=== PATIENT | male | born 1975 | race Caucasian/White ===

== ENCOUNTER 2017-04-02 12:15 | Outpatient (CLI) | payer BC ==
[2017-04-02 13:48] LABS: ALBUMIN/GLOBULIN RATIO 1.4 (1.0-2.2); CALCIUM 8.9 mg/dL (8.5-10.3); POTASSIUM 3.7 mmol/L (3.5-5.0); TOTAL PROTEIN 6.9 g/dL (6.7-8.2)
[2017-04-02 13:58] LABS: HEMOGLOBIN A1C 0.58 g/dL
[2017-04-04 14:06] LABS: TEST RESULT REPORT (())
[2017-04-04 16:07] LABS: TEST RESULT REPORT (())
[2017-04-08 15:46] LABS: TEST RESULT REPORT (())
== END 2017-04-02 12:16 | disposition home or self-care (01) ==
LOC: LAB.WCP 12:15
PROVIDERS: ATTEND Family Medicine
DX: E16.2 Hypoglycemia, unspecified (principal)
CPT/HCPCS: 36415; 80053; 81599; 83036

== ENCOUNTER 2017-05-08 12:52 | Emergency (ER) | payer BC ==
[2017-05-08 13:09] VITALS: BP 139/93
[2017-05-08] MEDS ORDERED: HYDROcod/ACETAM 5/325 MG TABLET PO STA (13:22)
--- NOTE | 2017-05-08 13:24 | ED Physician Documentation ---
PD HPI NECK PAIN - Stated complaint Stated Complaint: NECK PX - Chief complaint Chief Complaint: Back Pain - History obtained from History obtained from: Patient, Family () - History of Present Illness Timing - onset: Other (For a long time he has had recurrent left-sided neck pain with a deep ache Over the top of left shoulder. For the last week he has had it, and worse than it has ever been. There is no specific injury. He had x -rays ordered by his physician 2 days ago showing multilevel degenerative changes with neuroforaminal narrowing especially at C4-5 and C5-6. He tried a muscle relaxer and gabapentin at night without relief.) Review of Systems Constitutional: denies: Fever, Chills Nose: denies: Rhinorrhea / runny nose, Congestion Cardiac: denies: Chest pain / pressure, Palpitations Respiratory: denies: Dyspnea, Cough GI: denies: Abdominal Pain, Nausea, Vomiting PD PAST MEDICAL HISTORY - Present Medications Home Medications: Ambulatory Orders Medication Instructions Recorded Confirmed Dextroamphetamine/Amphetamine 20 mg PO BID 05/08/17 05/08/17 [Adderall 20 mg Tablet] Gabapentin 300 mg PO TID #60 capsule 05/08/17 HYDROcod/ACETAM 5/325 [Hackberry 5/325] 1 - 2 ea PO Q6H PRN #20 tablet 05/08/17 Ibuprofen [Motrin] 800 mg PO Q8H PRN #30 tablet 05/08/17 predniSONE [Deltasone] 20 mg PO [id number] #21 tab 05/08/17 - Allergies Allergies/Adverse Reactions: Allergies Allergy/AdvReac Type Severity Reaction Status Date / Time No Known Drug Allergies Allergy Verified 05/08/17 13:08 PD ED PE NORMAL - Vitals Vital signs reviewed: Yes - General General: Alert and oriented X 3, No acute distress - Neck Neck: Supple, no meningeal sign, No bony TTP - Neuro Neuro: Alert and oriented X 3, 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, Normal speech, Other (He seems to have equal upper extremity reflexes, 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 He has had incomplete relief with gabapentin just at night and a muscle relaxer. He was advised to stop the muscle relaxer and we will increase his gabapentin to 3 times a day and add an anti-inflammatory, steroid, and as needed Vicodin. He is advised to follow-up with his physician for further evaluation and treatment. Departure - Departure Disposition: Home, Self Care Clinical Impression: Cervical radiculopathy at C5 Condition: Good Record reviewed to determine appropriate education?: Yes Instructions: ED Cervical Radiculopathy Prescriptions: predniSONE [Deltasone] 20 mg PO [id number] #21 tab Gabapentin 300 mg PO TID #60 capsule Ibuprofen [Motrin] 800 mg PO Q8H PRN #30 tablet PRN Reason: PAIN &/OR FEVER HYDROcod/ACETAM 5/325 [Hackberry 5/325] 1 - 2 ea PO Q6H PRN #20 tablet PRN Reason: Pain Comments: Follow-up with your primary care physician, discuss an MRI if symptoms are persistent. Continue with physical therapy for now. Do not drink or drive with the hydrocodone or gabapentin. Your blood pressure was elevated today on check into the emergency department. This does not mean that you have hypertension, it is a common phenomenon to come to the emergency department and have elevated blood pressure. I recommend that she see her primary care physician within the week to have it rechecked when you are feeling better.
[2017-05-08] MEDS ORDERED: HYDROcod/ACETAM 5/325 MG TABLET ONE (13:30)
== END 2017-05-08 13:30 | disposition home or self-care (01) ==
LOC: ED 12:52
DX: M54.12 Radiculopathy, cervical region (principal); R03.0 Elevated blood-pressure reading, without diagnosis of hypertension
CPT/HCPCS: 99283; A9270

== ENCOUNTER → 2019-11-11 | Outpatient (CLI) | payer BC ==
[2019-11-11 12:55] LABS: ALBUMIN/GLOBULIN RATIO 1.3 (1.0-2.2); ALKALINE PHOSPHATASE 106 IU/L (42-121); ALT ALANINE AMINOTRANSFERASE 43 IU/L (10-60); AST ASPARTATE AMINOTRANSFERASE 30 IU/L (10-42); BILIRUBIN,TOTAL 0.9 mg/dL (0.2-1.0); BUN - BLOOD UREA NITROGEN 18 mg/dL (6-20); CALCIUM 8.8 mg/dL (8.5-10.3); CARBON DIOXIDE - CO2 26 mmol/L (21-32); CHLORIDE 107 mmol/L (101-111); CHOL/HDL RATIO 5.7 (<5.0); CHOLESTEROL 181 mg/dL; CREATININE 1.2 mg/dL (0.6-1.2); GFR - MDRD 66 (>89); GLUCOSE 103 mg/dL (70-100); HDL CHOLESTEROL 32 mg/dL; LDL CHOLESTEROL,CALCULATED 120 mg/dL; LDL/HDL RATIO 3.8 (<3.6); SODIUM 139 mmol/L (135-145); TOTAL PROTEIN 7.1 g/dL (6.7-8.2); VLDL CHOLESTEROL 29 mg/dL
== END ==
LOC: LAB.WCP 08:40
PROVIDERS: ATTEND Family Medicine
DX: Z00.00 Encounter for general adult medical examination without abnormal findings (principal); Z12.5 Encounter for screening for malignant neoplasm of prostate
CPT/HCPCS: 36415; 80053; 80061; 83721; 84153

== ENCOUNTER 2020-03-07 15:52 | Outpatient (CLI) | payer BC ==
[2020-03-07 18:36] LABS: BASOPHILS # (AUTO) 0.1 10^3/uL (0.0-0.1); BASOPHILS % (AUTO) 0.5 %; EOSINOPHILS # (AUTO) 0.1 10^3/uL (0.0-0.7); EOSINOPHILS % (AUTO) 1.4 %; HGB - HEMOGLOBIN 16.5 g/dL (14.0-18.0); LYMPHOCYTES # (AUTO) 1.7 10^3/uL (1.5-3.5); LYMPHOCYTES % (AUTO) 17.4 %; MEAN CORPUSCULAR HEMOGLOBIN 31.5 pg (27.0-31.0); MEAN CORPUSCULAR HGB CONC 34.2 g/dL (32.0-36.0); MEAN CORPUSCULAR VOLUME 92.2 fL (80.0-94.0); MEAN PLATELET VOLUME 10.8 fL (7.4-11.4); MONOCYTES # (AUTO) 0.7 10^3/uL (0.0-1.0); MONOCYTES % (AUTO) 7.5 %; NEUTROPHILS % (AUTO) 72.7 %; PLT - PLATELET COUNT 275 10^3/uL (130-450); RED BLOOD COUNT 5.24 10^6/uL (4.70-6.10); RED CELL DISTRIBUTION WIDTH 12.1 % (12.0-15.0); WHITE BLOOD COUNT 9.6 x10^3/uL (4.8-10.8)
[2020-03-07 18:54] LABS: ALBUMIN 4.2 g/dL (3.2-5.5); ALBUMIN/GLOBULIN RATIO 1.4 (1.0-2.2); BILIRUBIN,TOTAL 0.9 mg/dL (0.2-1.0); CALCIUM 9.2 mg/dL (8.5-10.3); CREATININE 1.3 mg/dL (0.6-1.2); TOTAL PROTEIN 7.3 g/dL (6.7-8.2)
== END 2020-03-07 23:59 | disposition home or self-care (01) ==
LOC: LAB.WCP 15:52
PROVIDERS: ATTEND Nurse Practitioner Family
DX: R94.31 Abnormal electrocardiogram [ECG] [EKG] (principal)
CPT/HCPCS: 36415; 80053; 84443; 85025

== ENCOUNTER 2020-03-08 07:53 | Outpatient (CLI) | payer BC ==
[2020-03-08 12:45] LABS: CHOL/HDL RATIO 6.1 (<5.0); CHOLESTEROL 164 mg/dL; HDL CHOLESTEROL 27 mg/dL; LDL CHOLESTEROL,CALCULATED 106 mg/dL; LDL/HDL RATIO 3.9 (<3.6); VLDL CHOLESTEROL 31 mg/dL
== END 2020-03-08 23:59 | disposition home or self-care (01) ==
LOC: LAB.WCP 07:53
PROVIDERS: ATTEND Family Medicine
DX: Z00.00 Encounter for general adult medical examination without abnormal findings (principal)
CPT/HCPCS: 36415; 80061; 83721

== ENCOUNTER 2021-06-12 09:25 | Outpatient (CLI) | payer BC ==
[2021-06-12 12:50] LABS: ALBUMIN 3.8 g/dL (3.2-5.5); ALBUMIN/GLOBULIN RATIO 1.4 (1.0-2.2); ALKALINE PHOSPHATASE 127 IU/L (42-121); ALT ALANINE AMINOTRANSFERASE 33 IU/L (10-60); AST ASPARTATE AMINOTRANSFERASE 22 IU/L (10-42); BILIRUBIN,TOTAL 0.7 mg/dL (0.2-1.0); BUN - BLOOD UREA NITROGEN 16 mg/dL (6-20); CARBON DIOXIDE - CO2 26 mmol/L (21-32); CHLORIDE 103 mmol/L (101-111); CHOL/HDL RATIO 6.7 (<5.0); CHOLESTEROL 167 mg/dL; CREATININE 1.2 mg/dL (0.6-1.2); GFR - MDRD 66 (>89); GLUCOSE 100 mg/dL (70-100); HDL CHOLESTEROL 25 mg/dL; LDL CHOLESTEROL,CALCULATED 89 mg/dL; LDL/HDL RATIO 3.6 (<3.6); POTASSIUM 4.3 mmol/L (3.5-5.0); SODIUM 139 mmol/L (135-145); TOTAL PROTEIN 6.6 g/dL (6.7-8.2); TRIGLYCERIDES 266 mg/dL; VLDL CHOLESTEROL 53 mg/dL
== END 2021-06-12 23:59 | disposition home or self-care (01) ==
LOC: LAB.WCP 09:25
PROVIDERS: ATTEND Family Medicine
DX: Z00.00 Encounter for general adult medical examination without abnormal findings (principal); Z12.5 Encounter for screening for malignant neoplasm of prostate
CPT/HCPCS: 36415; 80053; 80061; 83721; 84153

== ENCOUNTER 2021-07-17 12:38 | Outpatient (CLI) | payer BC ==
[2021-07-17 13:47] VITALS: BP 139/90
--- NOTE | 2021-07-17 13:47 | SLEEP CARE CONSULTATION ---
Information from patient questionnaire entered by Mayuri Durham. I have reviewed and concur with the information entered by Mayuri Durham. This document represents the service I personally performed and the decisions made by me, Mariana Carvalho ARNP. History of Present Illness Service Date and Time: 07/17/2021 1238 Reason for Visit: New patient, Previously diagnosed sleep apnea (AHI 101.1), sleep apnea on CPAP therapy Chief Complaint: reports: Unrefreshed sleep, Snoring (not when using his CPAP), Excessive daytime sleepiness, Observed pauses in breathing (not when using CPAP), Fatigue Date of Onset: 20+ years Usual bedtime: 2200 Time it takes to fall asleep: 60 minutes Snores at night: Yes Observed to quit breathing while asleep: Yes Sleeps alone due to snoring: No Number of times waking at night: 3 Reasons for waking at night: reports: Snoring, Bathroom Toss, Turn, or Twitch while sleeping: No Recalls having dreams: No Feels refreshed in the morning: No Morning headache: No Sleepy or fatigued during the day: Yes Ever fallen asleep while driving: No Takes day naps: Yes Dreams during day naps: No Prior sleep studies: Yes Year and Where: 2019 [facility] Type of Sleep Study: Polysomnography Additional HPI information: JULIO TAMAYO was previously diagnosed to have extremely severe, AHI 101.1, obstructive sleep apnea-hypopnea syndrome and comes in today to establish care for CPAP therapy. He continues to have unrefreshed sleep, daytime sleepiness and fatigue. He comes in with these concerns. - Parasomnia Symptoms Ever been unable to move upon waking from sleep: No Walks in sleep: No Talks in sleep: No Ever acted out dreams in sleep: No Ever felt weak in the knees when startled or emotional: No Bothered by creepy, crawly, restless sensations in legs: No Problems with memory or concentration: Yes CPAP Compliance Data - Data Reviewed with Patient Average duration of nightly device use: 6 hours, 32 minutes Compliance rate %: 83 Current pressure setting (cmH2O): 11-14 Average residual AHI: 4.3 Central apnea: 0.4 Obstructive apnea: 2.5 Average large leak: 35.7 L/min Compliance data discussion: He has a ResMed AirSense 10 machine. He is using an AirTouch F20. He last changed his cushion over the weekend. He does not have a backup mask. He gets his supplies with a DME but he does not know the name. They call him for him to order supplies. Subjective Patient concerns: reports: air blowing in eyes (sometimes, until readjust mask), mask leak noise (sometimes, until readjust mask). denies: aerophagia, mask discomfort, condensation in mask/hose, nasal congestion, dry mouth, nose, throat, epistaxis, other Observed to snore while using device: No Current pressure setting perceived as: comfortable On therapy, patient: reports: other (Has not noticed a difference in feeling res sanjeev or sleeping better since starting machine.). denies: drowsiness while driving Initial [place] Sleepiness Scale score: 7 (in 2020) Past Medical History Past Medical History: reports: Attention deficit Social History The patient's occupation is a [employer]. Patient is and lives in [place]. Have you smoked in the past 12 months: No Cigarettes per day (20/pack): 20 Years of smokin Quit date: 03/28/07 Smoking Pack Years: 12.0 Alcohol use: Yes Alcohol amount and frequency: 1-2, once/week Caffeine use: Yes Caffeine amount and frequency: 1 cup/day Family History Family history of sleep disordered breathing: Yes Family Hx Sleep Apnea: Father: Snoring Allergies and Home Medications Drug allergies reviewed: Yes (NKDA) Home medication list reviewed: Yes (no daily medications or supplements) Review of Systems Weight gain over past 5 years: 50 (40 in last 2 years) Cardiovascular: denies: high blood pressure Gastrointestinal: reports: heartburn Neurological: denies: headaches Psychiatric: denies: anxiety, depression Ear/Nose/Throat: reports: wisdom teeth removed. denies: tonsillectomy Endocrine: reports: sluggishness, increased appetite. denies: thyroid disease Physical Exam Blood Pressure: 139/90 Cuff size: wrist Heart Rate: 91 O2 Saturation: 98 Height: 5 ft 11 in Weight: 276 lb Body Mass Index: 38.5 BMI Classification: Obese Impression and Plan 1. Obstructive Sleep Apnea-Hypopnea Syndrome, extremely severe, with good treatment compliance and good apnea control. On CPAP therapy, the patient has no felt that he is more rested. He continues to wake up not feeling rested and is sleepy during the day. He averages 6 hours 32 minutes on his device nightly. Most people require 7-9 hours of sleep for optimal mental and physical function. Less than 5-6 hours of sleep consistently can contribute to health risks and mortality. Thus patient is advised to strive for a minimum of 7 hours of sleep. Methods discussed on how patient can achieve within their lifestyle. Patient AHI is also at 4.3. I will adjust his pressure to see if reducing his AHI will also help improve his overall sleep and restfulness. Patient has also gained about 50 pounds in the last 5 years, 40 of it in the last 2. He does not have any major health issues at this time and feels well. He states he recently had lab work done which was normal. He used to take Adderall but has not taken this for about a year. Patient was encouraged to lose weight for their overall health and to reduce apneas. Patient's apnea severity and rationale for treatment to reduce apnea, improve sleep quality and reduce cardiovascular and cerebrovascular events was reviewed. I also reviewed the benefit of consistent device use of CPAP for attention deficit. * Change auto CPAP pressure to 13-15 cmH2O * Patient to increase sleep time to 7 or more hours of sleep nightly by 15 minute increments * Notify me if snoring with mask or feeling that the pressure is too much or too little * Attempt to lose weight * Call this office if any problems using CPAP * Return for follow up in 1-2 months, or sooner if concerns arise Counseling Topics: Spare mask, Weight loss health impact Visit Type: In Office Time Spent with Patient (minutes): 40 Provider Statement: I spent 100% of the Face to Face Visit with the patient with greater than 50% spent counseling the patient and coordination of care.
== END 2021-07-17 12:39 | disposition home or self-care (01) ==
LOC: SC 12:38
PROVIDERS: ATTEND Nurse Practitioner Family
DX: G47.33 Obstructive sleep apnea (adult) (pediatric) (principal); E66.9 Obesity, unspecified; Z68.38 Body mass index [BMI] 38.0-38.9, adult
CPT/HCPCS: 99203; 99212

== ENCOUNTER 2021-08-14 13:46 | Outpatient (CLI) | payer BC ==
[2021-08-14 14:38] VITALS: BP 115/73
--- NOTE | 2021-08-14 14:38 | SLEEP CARE CONSULTATION ---
Information from patient questionnaire entered by Misty Arana MA. I have reviewed and concur with the information entered by Misty Arana MA. This document represents the service I personally performed and the decisions made by , Mariana Carvalho ARNP. History of Present Illness Service Date and Time: 08/14/2021 1346 Previous diagnosis: Extremely Severe, Obstructive Sleep Apnea-Hypopnea Syndrome AHI: 101.1 Reason for follow up: one month Equipment type: CPAP Equipment obtained from: [employer] [facility] [employer] [facility] [employer] (getting supplies as needed) Mask style: Full face Backup mask available: Yes (old mask) Last cushion change: 1 month Prior sleep studies: Yes HPI additional information: JULIO TAMAYO was diagnosed to have extremely severe, AHI 101.1, obstructive sleep apnea-hypopnea syndrome and returned today for CPAP therapy one month with pressure change follow-up. Sleep Study - Results Type of Sleep Study: Polysomnography Year and Where: 10/2019 [facility] Sleep CPAP Compliance Data - Data Reviewed with Patient Average duration of nightly device use: 7 hours 39 minutes Compliance rate %: 93 Current pressure setting (cmH2O): 13-15 Average residual AHI: 4.0 Central apnea: .6 Obstructive apnea: 2.0 Subjective Patient concerns: reports: air blowing in eyes (has to tighten mask headgear a little more). denies: aerophagia, mask discomfort, mask leak noise, condensation in mask/hose, nasal congestion, dry mouth, nose, throat, epistaxis, other Observed to snore while using device: No Current pressure setting perceived as: comfortable On therapy, patient: reports: drowsiness while driving, other (He does not feel much change with increasing time in mask or pressure change) Initial [place] Sleepiness Scale score: 7 (2020) Current [place] Sleepiness Scale score: 10 Allergies and Home Medications Home medication list reviewed: Yes (no changes) Review of Systems Review of systems same as previous: Yes (no changes) Physical Exam Vital signs obtained and entered by: MINOO REDDY Blood Pressure: 115/73 (right) Heart Rate: 96 O2 Saturation: 98 (with mask) Height: 5 ft 11 in Weight: 285 lb (with boots) Body Mass Index: 39.7 BMI Classification: Obese Impression and Plan 1. Obstructive Sleep Apnea-Hypopnea Syndrome, extremely severe, with good treatment compliance and good apnea control. Patient has not noticed a difference of morning restfulness since his last appointment with the increase in time in bed. The pressure change has reduced his AHI slightly, but he still has fatigue during the day and has not noticed an increase quality of his sleep. Patient states this started about a year ago. This coincides with the time he was taken off his Adderall for his attention deficit disorder. He was taken off due to concerns about labs that were done by his doctor. He has also noticed more problems with his concentration since taken off that medication. I do not feel it would be last for me to start him on a stimulant considering the adverse reactions he had on Adderall. I advised patient to follow-up with his doctor for his ADHD to see if there are other options that he can use to help reduce his daytime fatigue. In the meantime, patient asking for natural remedies to enhance his energy during the day. I advised him that he can take natural chlorophyll and ginseng to help boost his energy. He voiced understanding. Patient's apnea severity and rationale for treatment to reduce apnea, improve sleep quality and reduce cardiovascular and cerebrovascular events was reviewed. I also reviewed the benefit of consistent device use of CPAP for attention deficit. Patient was encouraged to lose weight for their overall health and to reduce apneas. * Continue auto CPAP pressure at 13-15 cmH2O * Notify me if snoring with mask or feeling that the pressure is too much or too little * Attempt to lose weight * Call this office if any problems using CPAP * Return for follow up in 1 year, or sooner if concerns arise Counseling Topics: Weight loss health impact Visit Type: In Office Time Spent with Patient (minutes): 24 Provider Statement: I spent 100% of the Face to Face Visit with the patient with greater than 50% spent counseling the patient and coordination of care.
== END 2021-08-14 13:47 | disposition home or self-care (01) ==
LOC: SC 13:46
PROVIDERS: ATTEND Nurse Practitioner Family
DX: G47.33 Obstructive sleep apnea (adult) (pediatric) (principal); E66.9 Obesity, unspecified; Z68.39 Body mass index [BMI] 39.0-39.9, adult
CPT/HCPCS: 99212

== ENCOUNTER 2021-12-31 08:00 | Outpatient (CLI) | payer BC | END 2021-12-31 23:59 | disposition home or self-care (01) | LOC: LAB.R 08:00 | PROVIDERS: ATTEND Physician Assistant | DX: J02.9 Acute pharyngitis, unspecified (principal); Z20.822 Contact with and (suspected) exposure to COVID-19 ==

== ENCOUNTER 2022-01-14 08:15 | Outpatient (CLI) | payer BC ==
[2022-01-14 08:43] LABS: ALBUMIN 4.1 g/dL (3.2-5.5); ALBUMIN/GLOBULIN RATIO 1.2 (1.0-2.2); CREATININE 1.1 mg/dL (0.6-1.2); POTASSIUM 4.1 mmol/L (3.5-5.0); TOTAL PROTEIN 7.5 g/dL (6.7-8.2)
[2022-01-14 09:28] LABS: FOLLICLE STIMULATING HORMONE 1.71 mIU/mL
[2022-01-14 09:29] LABS: LUTEINIZING HORMONE 1.69 mIU/mL
[2022-01-17 18:12] LABS: FREE TESTOSTERONE 33.4 pg/mL (35.0-155.0)
== END 2022-01-14 08:16 | disposition home or self-care (01) ==
LOC: LAB 08:15
PROVIDERS: ATTEND Physician Assistant
DX: R74.8 Abnormal levels of other serum enzymes (principal); E29.1 Testicular hypofunction
CPT/HCPCS: 36415; 80053; 82977; 83001; 83002; 84270; 84402; 84403

== ENCOUNTER 2022-01-23 08:02 | Outpatient (CLI) | payer BC ==
[2022-01-23 12:27] LABS: % IRON SATURATION 27 % (20-50); IRON 92 ug/dL (45-182); TOTAL IRON BINDING CAPACITY 340 ug/dL (250-450); TRANSFERRIN 243 mg/dL (180-329)
[2022-01-23 12:33] LABS: FREE T4 (FREE THYROXINE) 0.84 ng/dL (0.58-1.64)
[2022-01-23 12:35] LABS: PROLACTIN 10.7 ng/mL
== END 2022-01-23 08:03 | disposition home or self-care (01) ==
LOC: LAB.N 08:02
PROVIDERS: ATTEND Physician Assistant
DX: E29.1 Testicular hypofunction (principal)
CPT/HCPCS: 36415; 82533; 83540; 84146; 84403; 84439; 84466

== ENCOUNTER 2022-09-03 11:27 | Outpatient (CLI) | payer BC ==
[2022-09-03 21:33] LABS: ESTIMATED AVERAGE GLUCOSE 111 mg/dL (70-100); HEMOGLOBIN A1c% 5.5 % (4.27-6.07)
== END 2022-09-03 11:28 | disposition home or self-care (01) ==
LOC: LAB.N 11:27
PROVIDERS: ATTEND Physician Assistant
DX: R73.01 Impaired fasting glucose (principal); R35.0 Frequency of micturition
CPT/HCPCS: 36415; 83036; 84153

== ENCOUNTER 2022-11-05 12:00 | Outpatient (CLI) | payer BC | END 2022-11-05 12:01 | disposition home or self-care (01) | LOC: LAB.N 12:00 | PROVIDERS: ATTEND Nurse Practitioner Family | DX: R79.89 Other specified abnormal findings of blood chemistry (principal) | CPT/HCPCS: 36415; 84402; 84403 ==

== ENCOUNTER 2022-12-19 09:56 | Outpatient (CLI) | payer BC | END 2022-12-19 09:57 | disposition home or self-care (01) | LOC: NS 09:56 | PROVIDERS: ATTEND Physician Assistant | DX: Z71.3 Dietary counseling and surveillance (principal); R63.5 Abnormal weight gain; Z68.39 Body mass index [BMI] 39.0-39.9, adult | CPT/HCPCS: 97802 ==

== ENCOUNTER 2023-09-09 12:30 | Outpatient (CLI) | payer BC ==
--- NOTE | 2023-09-09 19:36 | XRAY Report ---
PROCEDURE: Ankle 3 View RT INDICATIONS: RIGHT ANKLE PAIN TECHNIQUE: 3 views of the ankle were acquired. COMPARISON: None. FINDINGS: Bones: No fractures or dislocations. Ankle mortise is normally aligned. No suspicious bony lesions . Mild osteoarthritic changes. Soft tissues: No tibiotalar joint effusion. Calcification and degenerative spurring of the Achilles tendon at the calcaneal insertion consistent with enthesopathy. IMPRESSION: 1. No acute bony abnormality. 2. Mild osteoarthritis. 3. 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 Reviewed by: Beatrice Olvera MD on 09/09/2023 7:34 PM PST Approved by: Beatrice Olvera MD on 09/09/2023 7:34 PM PST Station ID: [id number]
== END 2023-09-09 12:45 | disposition home or self-care (01) ==
LOC: DI.N 12:30
PROVIDERS: ATTEND Physician Assistant Medical
DX: M19.071 Primary osteoarthritis, right ankle and foot (principal); M77.9 Enthesopathy, unspecified

== ENCOUNTER 2023-10-02 12:06 | Outpatient (CLI) | payer BC ==
--- NOTE | 2023-10-02 11:36 | SLEEP CARE CONSULTATION ---
Information from patient questionnaire entered by Юлия Cardona. I have reviewed and concur with the information entered by Юлия Cardona. This document represents the service I personally performed and the decisions made by me, Mariana Carvalho ARNP. History of Present Illness Service Date and Time: 10/02/2023 1120 Previous diagnosis: Extremely Severe, Obstructive Sleep Apnea-Hypopnea Syndrome AHI: 101.1 Reason for follow up: annual (LAST SEEN 08/2022) Equipment type: CPAP (RESMED Airsense 10; s/u 01/2020) Equipment obtained from: [employer] (getting supplies as needed) Mask style: Full face Mask brand: Resmed (AirTouch F20, large cushion) Backup mask available: Yes Last cushion change: last weekend Prior sleep studies: Yes Year and Where: 10/2019 [facility] Type of Sleep Study: Polysomnography HPI additional information: JULIO TAMAYO was diagnosed to have extremely severe, AHI 101.1, obstructive sleep apnea-hypopnea syndrome and returns via video appointment today for CPAP therapy annual follow-up. Sleep Study - Results Type of Sleep Study: Polysomnography Prior sleep studies: Yes Year and Where: 10/2019 [facility] CPAP Compliance Data - Data Reviewed with Patient Average duration of nightly device use: 7 HR 32 MINS Compliance rate %: 99 (09/30/22-09/29/23; 365/365 days used) Current pressure setting (cmH2O): 13-15 Average residual AHI: 2.8 Central apnea: 0.2 Obstructive apnea: 1.2 Average large leak: 4.7 L/min Subjective Patient concerns: denies: aerophagia, mask discomfort, air blowing in eyes, mask leak noise, condensation in mask/hose, nasal congestion, dry mouth, nose, throat, epistaxis Observed to snore while using device: No Current pressure setting perceived as: comfortable On therapy, patient: reports: sleeping better, awakening more refreshed, being more awake and alert during the day, more rested overall. denies: drowsiness while driving Initial [place] Sleepiness Scale score: 7 (2020) Current [place] Sleepiness Scale score: 2 Allergies and Home Medications Known drug allergies: No Drug allergies reviewed: Yes Home medication list reviewed: Yes (Adderal XR 25 mg once a day) Allergy and home medication list: Allergies No Known Drug Allergies Allergy (Verified 09/30/23 08:35) Review of Systems Review of systems same as previous: No (ADD) Physical Exam Vital signs obtained and entered by: DANA ANTONIO Height: 5 ft 11 in Weight: 260 lb (per pt) Body Mass Index: 36.2 BMI Classification: Obese Impression and Plan 1. Obstructive Sleep Apnea-Hypopnea Syndrome, extremely severe, with good treatment compliance and good apnea control. On CPAP therapy, the patient has better sleep quality and is more rested overall. Patient has significant improvement of their sleep apnea and is satisfied with current CPAP therapy. Patient denies problems with oral dryness, nasal congestion, epistaxis, skin irritation or aerophagia. Patient's apnea severity and rationale for treatment to reduce apnea, improve sleep quality and reduce cardiovascular and cerebrovascular events was reviewed. I also reviewed the benefit of consistent device use of CPAP for attention deficit. 2. Obesity, unspecified. Currently patients BMI is 36.2. Obesity increases the risk of apnea, CPAP pressure requirements and overall health risks especially cardiovascular and diabetes. Thus patient is advised to lose weight. * Continue auto CPAP pressure at 13-15 cmH2O * Update supply prescription * Notify me if snoring with mask or feeling that the pressure is too much or too little * Attempt to lose weight * Call this office if any problems using CPAP * Return for follow up in 12 months, or sooner if concerns arise Counseling Topics: Spare mask, Weight loss health impact Prescriptions: Device supplies Follow up with Sleep Care in: 1 year Visit Type: Telehealth Video Video Type: [employer] Patient Location: Home Location of Provider: Office Patient agrees and consents to this telehealth visit type: Yes Patient agrees to have their insurance billed: Yes Time Spent with Patient (minutes): 14 Provider Statement: I spent 100% of the Telehealth Video Call with the patient with greater than 50% spent counseling the patient and coordination of care.
== END 2023-10-02 12:07 | disposition home or self-care (01) ==
LOC: SC 12:06
PROVIDERS: ATTEND Nurse Practitioner Family
DX: G47.33 Obstructive sleep apnea (adult) (pediatric) (principal); E66.9 Obesity, unspecified; Z68.36 Body mass index [BMI] 36.0-36.9, adult

== ENCOUNTER 2023-10-06 11:14 | Outpatient (CLI) | payer BC ==
--- NOTE | 2023-10-06 15:04 | XRAY Report ---
PROCEDURE: Lumbar Spine 2-3V INDICATIONS: SCIATICA, LEFT SIDE TECHNIQUE: 2 views of the lumbar spine were acquired. COMPARISON: None. FINDINGS: Bones: 5 [id number] vertebrae are present. There is normal bony alignment. No vertebral body compression fractures. No suspicious bony lesions. Mild disc height loss at all levels. Facet arthr osis L3-S1. Soft tissues: Overlying bowel gas pattern is normal. No suspicious soft tissue calcifications. IMPRESSION: Mild, multilevel degenerative disc disease and lower lumbar facet arthrosis. Reviewed by: Jose Antonio Estrada MD on 10/06/2023 3:03 PM PST Approved by: Jose Antonio Estrada MD on 10/06/2023 3:03 PM PST Station ID: [id number]
== END 2023-10-06 11:15 | disposition home or self-care (01) ==
LOC: DI.N 11:14
PROVIDERS: ATTEND Physician Assistant
DX: M51.36 Other intervertebral disc degeneration, lumbar region (principal); M47.816 Spondylosis without myelopathy or radiculopathy, lumbar region; M47.817 Spondylosis without myelopathy or radiculopathy, lumbosacral region; M51.37 Other intervertebral disc degeneration, lumbosacral region